=== PATIENT | female | born 1990 | race Caucasian/White ===

== ENCOUNTER 2019-11-30 08:24 | Emergency (ER) | payer BC, OTHER, SELFPAY ==
--- NOTE | ~2019-11-30 | CT_ITS ---
EXAMINATION: CT abdomen pelvis w con DATE: 11/30/2019 10:34 INDICATION: Abdominal pain TECHNIQUE: Computed tomography (CT) of the abdomen and pelvis was performed with 100 cc Omnipaque 350 intravenous contrast. Automated exposure control and iterative reconstruction technique were employe d. Exam dose: 1404.52 mGy-cm total exam DLP. COMPARISON: None. FINDINGS: Approximately 3.5 x 6.3 mm probable fissural node along the left greater fissure (series 4 image 9). The lower lung joseph are clear of infiltrate or consolidation. Normal heart size. No pericardial or pleural effusion. Status post cholecystectomy. No bile duct or pancreatic duct dilatation. No hepatic, splenic, pancreatic, and adrenal or renal space-occupying mass lesion is evident. Normal caliber of the abdominal aorta. No intraperitoneal or retroperitoneal or pelvic mass lesion or adenop athy or ascites. There is an IUD within the uterus. The ovaries measure up to 4.1 cm size on the right and 3.7 cm on t he left. These would be more optimally evaluated by pelvic ultrasound examination as clinically appro priate. No bowel obstruction, bowel wall thickening, pneumatosis or intraperitoneal free air. No CT evidence of appendicitis. The urinary bladder is unremarkable. Included skeletal structures are unremarkable. IMPRESSION: Status post cholecystectomy No evidence of appendicitis IUD within uterus Reviewed, dictated and finalized at [facility]. Reviewed, dictated and finalized at [facility].
[2019-11-30 08:32] VITALS: BP 139/96; PULSE 96; RESP 18; TEMP 36.8; O2SAT 100
[2019-11-30 08:45] LABS: Basophils Absolute Auto 0.1 K/mm3 (0.0-0.1); Basophils Percent Auto 0.4 % (0.2-1.2); Eosinophils Absolute Auto 0.2 K/mm3 (0-0.3); Eosinophils Percent Auto 1.6 % (0-4.4); Hematocrit 43.4 % (37.0-47.0); Hemoglobin 14.8 g/dL (12.0-15.0); Immature Granulocyte Absolute 0.07 K/mm3 (0.00-0.031); Immature Granulocyte Percent A 0.6 % (0-0.5); Lymphocytes Absolute Auto 3.18 K/mm3 (0.9-3.2); Lymphocytes Percent Auto 26.1 % (18.3-44.2); Mean Corpuscular HGB Conc 34.1 g/dl (32-36); Mean Corpuscular Hemoglobin 32.1 pg (26-34); Mean Corpuscular Volume 94.1 fl (80-100); Mean Platelet Volume 10.5 fl (7.4-10.4); Monocytes Absolute Auto 0.7 K/mm3 (0.1-0.6); Monocytes Percent Auto 5.8 % (2.6-8.5); Neutrophils Percent Auto 65.5 % (45.5-73.1); Platelet Count Result 210 k/mm3 (150-375); Red Blood Count 4.61 M/mm3 (4.2-5.4); Red Cell Distribution Width 11.9 % (11.5-14.5); White Blood Count 12.2 K/mm3 (4.5-10.0)
[2019-11-30 08:46] LABS: Add Urine Microscopic? NO; Appearance Urine Clear (Clear); Bilirubin Urine Negative (Negative); Blood Urine Negative (Negative); Color Urine Yellow (Yellow); Glucose Urine UA Negative (Negative); Ketones Urine Negative (Negative); Leukocyte Esterase Ur Negative LEU/UL (Negative); Nitrate Urine Negative (Negative); Protein Urine Negative (Negative); Specific Grav Ur 1.019 (1.001-1.035); Urobilinogen Urine Negative mg/dL (<2.0)
--- NOTE | 2019-11-30 08:48 | ED.GENADULT ---
HPI - General Adult General Chief complaint: Abdominal Pain Stated complaint: abdominal pain Time Seen by Provider: 11/30/19 08:36 Source: patient History of Present Illness HPI narrative: Patient is a 29 y/o female complaining of lower abdominal pain starting 1 hour ago. She describes her pain as burning and radiates to upper abdomen. She rates her pain as 6/10. She has no fever, chills, dysuria, vaginal bleeding or discharge. Related Data Home Medications Medication Instructions Recorded Confirmed tizanidine 2 mg PO 11/30/19 Allergies Allergy/AdvReac Type Severity Reaction Status Date / Time amoxicillin Allergy Unknown Rash Unverified 11/30/19 08:36 Penicillins Allergy Unknown Rash Unverified 11/30/19 08:36 Review of Systems Constitutional: Constitutional: Denies chills, Denies fever(s), Denies headache(s) and Denies weakness Eyes: Eyes: Denies blurry vision ENT: Denies headache(s) and Denies neck pain Cardiovascular: Cardiovascular: Denies chest pain and Denies dyspnea Respiratory: Respiratory: Denies cough and Denies dyspnea Gastrointestinal: Gastrointestinal: Reports abdominal pain, Denies diarrhea, Denies nausea and Denies vomiting Genitourinary: Genitourinary: Denies hematuria and Denies dysuria Musculoskeletal: Musculoskeletal: Denies back pain and Denies neck pain Neurologic: Denies headache(s) and Denies weakness [facility] Social History Social History Gender identity (if verbalized by the patient): Female Exam Const: General: no acute distress and well developed Orientation/consciousness: oriented to person, oriented to place, oriented to time and patient oriented x3 HENMT: Head: normocephalic Ears: external ears normal General nose exam: Normal external nose present Eyes: General: appearance normal, both eyes and all related structures Conjunctivae: conjunctivae normal Neck: Neck: normal visual inspection and full ROM Chest: Chest palpation & inspection: normal inspection of the chest and no tenderness Resp: Effort & Inspection: normal respiratory effort Auscultation: clear to auscultation bilaterally Cardio: Rate: regular rate Rhythm: regular rhythm GI: GI Palp: No abdominal tenderness and Yes Soft to palpation Skin: General skin exam: normal color and turgor normal Neuro: General: oriented to person, oriented to place, oriented to time and patient oriented x3 Cognition (Neuro): normal cognition Extrem: General: normal to inspection, full ROM and no pedal edema Psych: Appearance: grossly normal Mental Status: mental status grossly normal Affect: normal affect Course Vital Signs Vital signs: Vital Signs Temperature 36.8 C 11/30/19 08:32 Pulse Rate 96 11/30/19 08:32 Respiratory Rate 18 11/30/19 08:32 Blood Pressure 139/96 H 11/30/19 08:32 Pulse Oximetry 100 11/30/19 08:32 Temperature 36.8 C 11/30/19 08:32 Pulse Rate 80 11/30/19 12:06 Respiratory Rate 18 11/30/19 12:06 Blood Pressure 115/60 11/30/19 12:06 Pulse Oximetry 100 11/30/19 12:06 Medical Decision Making Vital Signs Vital Signs: Vital Signs Temperature 36.8 C 11/30/19 08:32 Pulse Rate 96 11/30/19 08:32 Respiratory Rate 18 11/30/19 08:32 Blood Pressure 139/96 H 11/30/19 08:32 Pulse Oximetry 100 11/30/19 08:32 Temperature 36.8 C 11/30/19 08:32 Pulse Rate 80 11/30/19 12:06 Respiratory Rate 18 11/30/19 12:06 Blood Pressure 115/60 11/30/19 12:06 Pulse Oximetry 100 11/30/19 12:06 Lab Data Result diagrams: 11/30/19 08:38 11/30/19 08:38 Labs: Lab Results 11/30/19 11/30/19 11/30/19 Range/Units 08:38 08:38 08:38 WBC 12.2 H (4.5-10.0) K/mm3 RBC 4.61 (4.2-5.4) M/mm3 Hgb 14.8 (12.0-15.0) g/dL Hct 43.4 (37.0-47.0) % MCV 94.1 (80-100) fl MCH 32.1 (26-34) pg MCHC 34.1 (32-36) g/dl RDW 11.9 (11.5-14.5) % Plt
[2019-11-30 08:56] LABS: Alanine Aminotransferase 27 U/L (4-35); Albumin Level 4.1 g/dL (3.5-5.1); Alkaline Phosphatase 124 U/L (38-126); Anion Gap 5 mmol/L (8-16); Aspartate Amino Transferase 21 U/L (14-36); Bilirubin,Total 0.6 mg/dL (0.2-1.3); Blood Urea Nitrogen 14 mg/dL (7-17); Calcium 9.3 mg/dL (8.4-10.2); Carbon Dioxide 27 mmol/L (22-30); Chloride 103 mmol/L (98-107); Estimated CRCL calculation 104 ml/min; Estimated Glomerular Filt Rate > 60; Glucose 105 mg/dL (65-105); Lipase 80 U/L (23-300); Potassium 4.1 mmol/L (3.4-5.0); Sodium 135 mmol/L (137-145)
[2019-11-30 10:15] VITALS: BP 114/54; PULSE 75; RESP 18; O2SAT 100
[2019-11-30 12:06] VITALS: BP 115/60; PULSE 80; RESP 18; O2SAT 100
== END 2019-11-30 12:09 | disposition home or self-care (01) ==
PROVIDERS: Emergency Provider Emergency Medicine
DX: R10.84 Generalized abdominal pain (principal)
CPT/HCPCS: 36415; 74177; 80053; 81003; 81025; 83690; 85025; 99283; 99284; Q9967